=== PATIENT | female | born 1955 | race American Indian/Alaskan Native ===

== ENCOUNTER 2016-10-14 18:20 | Emergency (ER) | payer BC ==
[2016-10-14 18:32] VITALS: BP 157/85
--- NOTE | 2016-10-14 19:59 | Emergency Department Report ---
ED Lower Extremity HPI - General Chief Complaint: Extremity Injury, Lower Stated Complaint: HEEL PAIN FROM FALL Time Seen by Provider: 10/14/16 19:43 Source: patient Mode of arrival: Ambulatory Limitations: No Limitations - History of Present Illness Initial Comments: Patient comes into the ER today with complaints of left heel pain for the past one week. Patient states that she fell a week ago in her bedroom and got her foot caught underneath the bed. Patient has been trying [id number] remedies for her discomfort and states that there is minimal improvements. Patient states that most her pain is in the heel. Patient denies any bleeding. Patient states that weightbearing and ambulation except the pain worse. Patient denies any other injuries or pain. MD Complaint: ankle injury, foot injury - Related Data Home Medications Medication Instructions Recorded Confirmed Last Taken Amlodipine Besylate 1 tab PO QDAY 03/22/13 07/11/13 07/11/13 Losartan/Hydrochlorothiazide 1 tab PO QDAY 03/22/13 07/11/13 07/11/13 [Losartan-Hctz 100-25 mg Tab] Previous Rx's Medication Instructions Recorded Last Taken Type Naproxen [Naprosyn TAB] 500 mg PO BID #14 tablet 10/14/16 Unknown Rx traMADol [Ultram] 50 mg PO Q6HR PRN #20 tablet 10/14/16 Unknown Rx Allergies Allergy/AdvReac Type Severity Reaction Status Date / Time latex Allergy Severe Rash Verified 07/11/13 15:30 ED Review of Systems ROS: Stated complaint: HEEL PAIN FROM FALL Other details as noted in HPI Constitutional: denies: chills, fever Eyes: denies: eye pain, eye discharge, vision change ENT: denies: ear pain, throat pain Respiratory: denies: cough, shortness of breath, wheezing Cardiovascular: denies: chest pain, palpitations Endocrine: no symptoms reported Gastrointestinal: denies: abdominal pain, nausea, diarrhea Genitourinary: denies: urgency, dysuria, discharge Musculoskeletal: joint swelling, arthralgia. denies: back pain Skin: denies: rash, lesions Neurological: denies: headache, weakness, paresthesias Psychiatric: denies: anxiety, depression Hematological/Lymphatic: denies: easy bleeding, easy bruising ED Past Medical Hx - Past Medical History Previous Medical History?: Yes Hx Hypertension: Yes Hx of Cancer: Yes (double mastectomy) Hx Arthritis: Yes Hx Asthma: No - Surgical History Past Surgical History?: Yes Hx Cholecystectomy: Yes (1985) Hx Breast Surgery: Yes (mastectomy) Additional Surgical History: Left knee srgery with knee replacement, Hysterectomy - Social History Smoking Status: Never Smoker Substance Use Type: Alcohol, Prescribed - Medications Home Medications: Home Medications Medication Instructions Recorded Confirmed Last Taken Type Amlodipine Besylate 1 tab PO QDAY 03/22/13 07/11/13 07/11/13 History Losartan/Hydrochlorothiazide 1 tab PO QDAY 03/22/13 07/11/13 07/11/13 History [Losartan-Hctz 100-25 mg Tab] Naproxen [Naprosyn TAB] 500 mg PO BID #14 tablet 10/14/16 Unknown Rx traMADol [Ultram] 50 mg PO Q6HR PRN #20 tablet 10/14/16 Unknown Rx ED Physical Exam - General Limitations: No Limitations General appearance: alert, in no apparent distress - Head Head exam: Present: atraumatic, normocephalic - Eye Eye exam: Present: normal appearance - ENT ENT exam: Present: mucous membranes moist - Neck Neck exam: Present: normal inspection - Respiratory Respiratory exam: Present: normal lung sounds bilaterally. Absent: respiratory distress - Cardiovascular Cardiovascular Exam: Present: regular rate, normal rhythm. Absent: systolic murmur, diastolic murmur, rubs, gallop - GI/Abdominal GI/Abdominal exam: Present: soft, normal bowel sounds - Extremities Exam Extremities exam: Present: tenderness (tenderness noted to left heel posteriorly as well as extending into left Achilles tendon), normal capillary refill, joint swelling (left lateral posterior ankle and foot swelling). Absent : full ROM (Limited dorsiflexion of left foot secondary to pain), pedal edema, calf tenderness - Back Exam Back exam: Present: normal inspection - Neurological Exam Neurological exam: Present: alert, oriented X3, CN II-XII intact. Absent: motor sensory deficit - Psychiatric Psychiatric exam: Present: normal affect, normal mood - Skin Skin exam: Present: warm, dry, intact, normal color. Absent: rash ED Course Vital Signs 10/14/16 18:26 Temperature 97.6 F Pulse Rate 86 Respiratory 20 Rate Blood Pressure 157/85 O2 Sat by Pulse 99 Oximetry ED Lower Extremity MDM - Radiology Data Radiology results: image reviewed interpreted by me: Right foot x-ray interpreted by myself reveals degenerative changes with no acute bone pathology noted. - Medical Decision Making Patient is nontoxic and hemodynamically stable. I believe patient may be having symptoms of potentially bruised heel as well as Achilles tendinitis. Patient given prescription for a walking boot and I will limit her work activities to allow her to sit and stand at will. I'll also prescribe patient medications for any inflammation and pain and refer her to orthopedics for further evaluation. Patient is in agreement with treatment plan the patient is stable for discharge. Critical care attestation.: If time is entered above; I have spent that time in minutes in the direct care of this critically ill patient, excluding procedure time. ED Disposition Clinical Impression: Pain of left heel, Achilles tendinitis, left leg Disposition: TO HOME OR SELFCARE Is pt being admited?: No Does the pt Need Aspirin: No Condition: Good Instructions: Achilles Tendinitis (ED), Foot Contusion (ED) Prescriptions: Naproxen [Naprosyn TAB] 500 mg PO BID #14 tablet traMADol [Ultram] 50 mg PO Q6HR PRN #20 tablet PRN Reason: Pain Referrals: PRIMARY CARE, [Primary Care Provider] - 3-5 Days QUANG LOPEZ MD [Staff Physician] - 3-5 Days Forms: Work/School Release Form(ED) Time of Disposition: 21:17
--- NOTE | 2016-10-15 07:20 | XRay Report ---
Left foot 3 views: History: Left hip pain, fall, injury. Findings: This is generalized osteopenia. No fracture, periosteal reaction or lytic lesion. Arthritic changes of the intertarsal joints. Impression: No evidence of acute fracture.
== END 2016-10-14 21:23 | disposition home or self-care (01) ==
LOC: ED 18:20
DX: M76.62 Achilles tendinitis, left leg (principal); M79.672 Pain in left foot; I10 Essential (primary) hypertension; M19.90 Unspecified osteoarthritis, unspecified site; Z90.13 Acquired absence of bilateral breasts and nipples; Z91.040 Latex allergy status; W19.XXXA Unspecified fall, initial encounter; Y93.89 Activity, other specified; Y99.8 Other external cause status; Y92.003 Bedroom of unspecified non-institutional (private) residence as the place of occurrence of the external cause

== ENCOUNTER 2016-12-08 07:38 | Outpatient (CLI) | payer BC ==
--- NOTE | 2016-12-08 09:55 | Mammography Report ---
Bilateral screening mammogram: The patient has bilateral mastectomy with reconstructions. Comparison is made to her prior study in December 2014. The tissue is mostly fatty. Mild inhomogeneous nodularity is noted in the upper outer left breast with a few scattered benign calcifications bilaterally. Couple surgical clips are noted on the left medially. No nipples identified. These findings are all unchanged. CAD used. Impression: Stable reconstruction pattern. Recommendation: Annual mammogram followup.
== END 2016-12-08 07:39 | disposition home or self-care (01) ==
LOC: MAMMO 07:38
PROVIDERS: ATTEND Surgery
DX: Z12.31 Encounter for screening mammogram for malignant neoplasm of breast (principal); I10 Essential (primary) hypertension; F32.9 Major depressive disorder, single episode, unspecified; Z90.11 Acquired absence of right breast and nipple; Z90.12 Acquired absence of left breast and nipple
CPT/HCPCS: 77067; G0202

== ENCOUNTER 2017-12-10 07:11 | Outpatient (CLI) | payer BC ==
--- NOTE | 2017-12-10 09:27 | Mammography Report ---
BILATERAL DIGITAL SCREENING MAMMOGRAM with CAD: 12/10/17 07:11:00 CLINICAL: Routine screening.History of breast cancer status post bilateral mastectomy with TRAM reconstructions. COMPARISON:12/08/16 FINDINGS: The reconstructed breast are almost entirely fatty. Benign left upper outer calcifications and a few scattered right calcifications. No mass, architectural distortion or suspicious calcifications. IMPRESSION: No mammographic evidence of malignancy. BI-RADS CATEGORY: 2 -- Benign RECOMMENDATION: Routine mammographic screening in one year. COMMENT: Patient follow-up letters are generated by our [employer] application.
== END 2017-12-10 07:12 | disposition home or self-care (01) ==
LOC: MAMMO 07:11
PROVIDERS: ATTEND Surgery
DX: Z12.31 Encounter for screening mammogram for malignant neoplasm of breast (principal); E66.9 Obesity, unspecified; I10 Essential (primary) hypertension; K21.9 Gastro-esophageal reflux disease without esophagitis; M19.90 Unspecified osteoarthritis, unspecified site; Z90.710 Acquired absence of both cervix and uterus; Z90.49 Acquired absence of other specified parts of digestive tract; Z86.73 Personal history of transient ischemic attack (TIA), and cerebral infarction without residual deficits
CPT/HCPCS: 77067

== ENCOUNTER 2018-05-07 06:22 | Emergency (ER) | payer BC ==
[2018-05-07 06:51] LABS: Basophils # (Auto) 0.1 K/mm3 (0.0-0.1); Basophils % (Auto) 0.8 % (0.0-1.8); Eosinophils # (Auto) 0.2 K/mm3 (0.0-0.4); Eosinophils % (Auto) 2.1 % (0.0-4.3); Hematocrit 35.9 % (30.3-42.9); Hemoglobin 11.6 gm/dl (10.1-14.3); Lymphocytes # (Auto) 2.1 K/mm3 (1.2-5.4); Lymphocytes % (Auto) 26.2 % (13.4-35.0); Mean Corpuscular HGB Conc 32 % (30-34); Mean Corpuscular Volume 93 fl (79-97); Monocytes # (Auto) 0.6 K/mm3 (0.0-0.8); Monocytes % (Auto) 7.5 % (0.0-7.3); Platelet Count 252 K/mm3 (140-440); Red Blood Count 3.87 M/mm3 (3.65-5.03); Red Cell Distribution Width 15.1 % (13.2-15.2)
[2018-05-07 07:07] LABS: Alanine Aminotransferase 10 units/L (7-56); Albumin 3.7 g/dL (3.9-5); BUN/Creatinine Ratio 22; Blood Urea Nitrogen 22 mg/dL (7-17); Calcium 9.6 mg/dL (8.4-10.2); Hemolysis Index 7
--- NOTE | 2018-05-07 08:11 | Emergency Department Report ---
ED Abdominal Pain HPI - General Chief Complaint: Abdominal Pain Stated Complaint: ABD PAIN Time Seen by Provider: 05/07/18 07:53 Source: patient Mode of arrival: Ambulatory Limitations: No Limitations - History of Present Illness Initial Comments: This is a 62-year-old female presents complaining of right sided abdominal pain intermittently for about 8 months. Patient states for the plastic menses at this gnawing pain in her right lower quadrant. She denies nausea/vomiting/diarrhea. She denies vaginal bleeding, dysuria, urgency. Patient is known that she uses the bathroom urinary frequency much more at night. Severity scale (0 -10): 10 - Related Data Home Medications Medication Instructions Recorded Confirmed Last Taken Amlodipine Besylate 1 tab PO QDAY 03/22/13 07/11/13 07/11/13 Losartan/Hydrochlorothiazide 1 tab PO QDAY 03/22/13 07/11/13 07/11/13 [Losartan-Hctz 100-25 mg Tab] Previous Rx's Medication Instructions Recorded Last Taken Type Naproxen [Naprosyn TAB] 500 mg PO BID #14 tablet 10/14/16 Unknown Rx traMADol [Ultram] 50 mg PO Q6HR PRN #20 tablet 10/14/16 Unknown Rx Allergies Allergy/AdvReac Type Severity Reaction Status Date / Time latex Allergy Severe Rash Verified 07/11/13 15:30 ED Review of Systems ROS: Stated complaint: ABD PAIN Other details as noted in HPI Constitutional: denies: chills, fever Eyes: denies: eye pain, eye discharge, vision change ENT: denies: ear pain, throat pain Respiratory: denies: cough, shortness of breath, wheezing Cardiovascular: denies: chest pain, palpitations Endocrine: no symptoms reported Gastrointestinal: denies: abdominal pain, nausea, diarrhea Genitourinary: frequency. denies: urgency, dysuria, hematuria, discharge Musculoskeletal: denies: back pain, joint swelling, arthralgia Skin: denies: rash, lesions Neurological: denies: headache, weakness, paresthesias Psychiatric: denies: anxiety, depression Hematological/Lymphatic: denies: easy bleeding, easy bruising ED Past Medical Hx - Past Medical History Previous Medical History?: Yes Hx Hypertension: Yes Hx Arthritis: Yes Hx Asthma: No - Surgical History Past Surgical History?: Yes Hx Cholecystectomy: Yes (1985) Hx Breast Surgery: Yes (mastectomy) Additional Surgical History: Left knee srgery with knee replacement, Hysterectomy - Social History Smoking Status: Never Smoker Substance Use Type: Alcohol - Medications Home Medications: Home Medications Medication Instructions Recorded Confirmed Last Taken Type Amlodipine Besylate 1 tab PO QDAY 03/22/13 07/11/13 07/11/13 History Losartan/Hydrochlorothiazide 1 tab PO QDAY 03/22/13 07/11/13 07/11/13 History [Losartan-Hctz 100-25 mg Tab] Naproxen [Naprosyn TAB] 500 mg PO BID #14 tablet 10/14/16 Unknown Rx traMADol [Ultram] 50 mg PO Q6HR PRN #20 tablet 10/14/16 Unknown Rx ED Physical Exam - General Limitations: No Limitations General appearance: alert, in no apparent distress - Head Head exam: Present: atraumatic, normocephalic - Eye Eye exam: Present: normal appearance - ENT ENT exam: Present: mucous membranes moist - Neck Neck exam: Present: normal inspection - Respiratory Respiratory exam: Present: normal lung sounds bilaterally. Absent: respiratory distress - Cardiovascular Cardiovascular Exam: Present: regular rate, normal rhythm. Absent: systolic murmur, diastolic murmur, rubs, gallop - GI/Abdominal GI/Abdominal exam: Present: soft, normal bowel sounds. Absent: distended, tenderness, guarding, rebound, rigid - Extremities Exam Extremities exam: Present: normal inspection, full ROM - Back Exam Back exam: Present: normal inspection - Neurological Exam Neurological exam: Present: alert, oriented X3 - Psychiatric Psychiatric exam: Present: normal affect, normal mood - Skin Skin exam: Present: warm, dry, intact, normal color. Absent: rash ED Course Vital Signs 05/07/18 05/07/18 06:36 07:54 Temperature 98 F Pulse Rate 78 Respiratory 18 18 Rate Blood Pressure 189/91 [Right] O2 Sat by Pulse 95 99 Oximetry ED Medical Decision Making - Lab Data Result diagrams: 05/07/18 06:42 05/07/18 06:42 - Radiology Data Radiology results: report reviewed, image reviewed FINDINGS: Lung bases: Normal. Liver: Normal. Biliary system: Cholecystectomy. No biliary dilatation. Pancreas: Normal. Spleen: Normal. Kidneys/ureters/bladder: The kidneys are normal size and position. A 2.2 cm left renal cyst is identified. A punctate 1 mm calyceal stone is suspected in inferior left kidney. No obvious ureteral stones or hydronephrosis. The bladder is unremarkable. Adrenal glands: Normal. Aorta: Normal. Intestines: Normal. Appendix: Normal. Pelvic viscera: Total hysterectomy changes are suspected. Ascites: None. Adenopathy: None. Musculoskeletal: A small supraumbilical hernia containing fat measures 4 cm in diameter. The hernia neck measures 1 cm. No inflammation. Advanced degenerative disc disease at L5-S1 is noted. No fracture or suspicious bony lesion. IMPRESSION: No acute process is identified. Punctate nonobstructing stone in the inferior left kidney. Left renal cyst. Small supraumbilical hernia containing fat. Transcribed By: TTR Dictated By: JERSON IBRAHIM JR, MD Electronically Authenticated By: JERSON IBRAHIM JR, MD Signed Date/Time: 05/07/18 0841 - Medical Decision Making This is a 62-year-old female who presents with abdominal pain was likely from a hernia or kidney stone that is not obstructing. Labs were normal. Urinalysis positive for bacteria otherwise normal CT scan of the abdomen shows C reported above Discussed all findings with the patient. 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 Vital signs are normal patient is in no acute distress. Patient understands instructions. Critical care attestation.: If time is entered above; I have spent that time in minutes in the direct care of this critically ill patient, excluding procedure time. ED Disposition Clinical Impression: Kidney stone on left side, Umbilical hernia Disposition: DC-01 TO HOME OR SELFCARE Is pt being admited?: No Does the pt Need Aspirin: No Condition: Stable Instructions: Kidney Stones (ED), Umbilical Hernia (ED), Abdominal Pain (ED) Additional Instructions: Make sure to follow up with the primary care physician as discussed. Take all your medications as you've been prescribed. If you have any worsening symptoms or develop new symptoms please return to ED immediately. Referrals: KENYON MCCARTHY MD [Primary Care Provider] - 3-5 Days [facility] [Provider Group] - 3-5 Days [facility] [Provider Group] - 3-5 Days Forms: Work/School Release Form(ED) Time of Disposition: 10:25
--- NOTE | 2018-05-07 08:44 | Cat Scan Report ---
CT ABDOMEN PELVIS WITHOUT CONTRAST: HISTORY: Right lower quadrant abdominal pain. COMPARISON: none. TECHNIQUE: Helical CT in 1.25mm intervals without IV contrast. Sagittal and coronal reconstructions. FINDINGS: Lung bases: Normal. Liver: Normal. Biliary system: Cholecystectomy. No biliary dilatation. Pancreas: Normal. Spleen: Normal. Kidneys/ureters/bladder: The kidneys are normal size and position. A 2.2 cm left renal cyst is identified. A punctate 1 mm calyceal stone is suspected in inferior left kidney. No obvious ureteral stones or hydronephrosis. The bladder is unremarkable. Adrenal glands: Normal. Aorta: Normal. Intestines: Normal. Appendix: Normal. Pelvic viscera: Total hysterectomy changes are suspected. Ascites: None. Adenopathy: None. Musculoskeletal: A small supraumbilical hernia containing fat measures 4 cm in diameter. The hernia neck measures 1 cm. No inflammation. Advanced degenerative disc disease at L5-S1 is noted. No fracture or suspicious bony lesion. IMPRESSION: No acute process is identified. Punctate nonobstructing stone in the inferior left kidney. Left renal cyst. Small supraumbilical hernia containing fat.
[2018-05-07 08:51] LABS: Bacteria,Urine 1+ /HPF (Negative); Mucus,Urine FEW /HPF
[2018-05-07 09:10] LABS: Bilirubin,Urine NEG (Negative); Blood,Urine NEG (Negative); Color,Urine Yellow (Yellow); Protein,Urine <15 mg/dL mg/dL (Negative); Urobilinogen,Urine < 2.0 mg/dL (<2.0)
[2018-05-07 10:57] VITALS: BP 161/77
== END 2018-05-07 11:10 | disposition home or self-care (01) ==
LOC: ED 06:22
DX: K42.9 Umbilical hernia without obstruction or gangrene (principal); N20.0 Calculus of kidney; I10 Essential (primary) hypertension; M19.90 Unspecified osteoarthritis, unspecified site; Z90.49 Acquired absence of other specified parts of digestive tract; Z98.890 Other specified postprocedural states; Z90.710 Acquired absence of both cervix and uterus; Z91.040 Latex allergy status
CPT/HCPCS: 36415; 74176; 80053; 81001; 85025